=== PATIENT | female | born 1965 | race Caucasian/White ===

== ENCOUNTER → 2016-09-07 | Outpatient (CLI) | payer OTHER | LOC: COL.RAD 07:30 | DX: N18.9 Chronic kidney disease, unspecified (principal) ==

== ENCOUNTER → 2017-01-18 | Outpatient (CLI) | payer OTHER | LOC: MC.RAD 13:20 | DX: Z12.31 Encounter for screening mammogram for malignant neoplasm of breast (principal) ==

== ENCOUNTER 2017-12-21 22:50 | Emergency (ER) | payer OTHER ==
[~2017-12-21] VITALS: Ht 160 cm; Wt 52.3 kg
[2017-12-21 22:53] VITALS: TEMP 97.9
[2017-12-21 23:16] LABS: BASO % 0.2 % (0.0-2.0); EOS # 0.1 (0.0-0.7); EOS % 0.5 % (0-4.0); GRAN # 6.1 (1.4-6.5); GRAN % 64.6 % (42.2-75.2); LYMPH # 2.6 (1.2-3.4); LYMPH % 27.8 % (20.0-51.0); MEAN CELL VOLUME 104 fl (80.0-100.0); MEAN CORPUSCULAR HEMOGLOBIN 35 pg (27.0-31.0); MEAN CORPUSCULAR HGB CONC 34 g/dl (33.0-37.0); MONO # 0.6 (0.1-0.6); MONO % 5.9 % (1.7-9.3); PLATELET COUNT 188 K/mm3 (130-400); RED BLOOD COUNT 3.67 M/mm3 (4.10-5.30); REDCELL DISTRIBUTION WIDTH-CV 12.8 % (11.5-14.5)
[2017-12-21 23:18] LABS: INR 0.9 (0.8-3.0); PROTHROMBIN TIME 10.3 SECONDS (9.7-12.8)
[2017-12-21 23:23] LABS: BILIRUBIN,TOTAL 0.5 mg/dL (0.0-1.0); CALCIUM 8.1 mg/dL (8.4-10.2); CREATININE, serum 0.82 mg/dL (0.52-1.25); POTASSIUM 3.5 mmol/L (3.4-5.0); TOTAL PROTEIN 7.1 gm/dL (6.4-8.2)
[2017-12-21] MEDS ORDERED: IMURAN 50MG TAB50 MG PO (23:57)
[2017-12-21] MEDS ORDERED: WELLBUTRIN SR150 M1 PO (23:58)
[2017-12-21] MEDS ORDERED: CELEXA10 MG PO (23:58)
[2017-12-21] MEDS ORDERED: FOLIC ACID 11 MG/TA1 PO (23:58)
[2017-12-21] MEDS ORDERED: CALCIUM 600MG+D1 TAB PO (23:59)
[2017-12-21] MEDS ORDERED: MULTIPLE VITAMI1 CAP PO (23:59)
[2017-12-21] MEDS ORDERED: OMEGA-3 1000 MG1 CAP PO (23:59)
[2017-12-22 01:15] VITALS: BP 106/72; PULSE 86
== END 2017-12-22 01:25 | disposition short-term general hospital (02) ==
LOC: COL.ER 22:50
PROVIDERS: Emergency Medicine
DX: S32.010A Wedge compression fracture of first lumbar vertebra, initial encounter for closed fracture (principal); S01.01XA Laceration without foreign body of scalp, initial encounter; Z23 Encounter for immunization; V93.83XA Other injury due to other accident on board other powered watercraft, initial encounter; Y92.828 Other wilderness area as the place of occurrence of the external cause
CPT/HCPCS: J2270; J2405; J7030; Q9967

== ENCOUNTER 2017-12-31 13:07 | Emergency (ER) | payer OTHER ==
[~2017-12-31 13:07] MED LIST: CALCIUM 600MG+D1 TAB PO; CELEXA10 MG PO; FOLIC ACID 11 MG/TA1 PO; IMURAN 50MG TAB50 MG PO; MULTIPLE VITAMI1 CAP PO; OMEGA-3 1000 MG1 CAP PO; WELLBUTRIN SR150 M1 PO
[2017-12-31 13:14] VITALS: BP 119/78; PULSE 104; TEMP 98.3
== END 2017-12-31 13:17 | disposition home or self-care (01) ==
LOC: COL.ER 13:07
DX: S01.01XD Laceration without foreign body of scalp, subsequent encounter (principal)

== ENCOUNTER → 2018-02-12 | Outpatient (CLI) | payer OTHER | LOC: COL.RAD 13:49 | DX: S32.018D Other fracture of first lumbar vertebra, subsequent encounter for fracture with routine healing (principal) ==

== ENCOUNTER 2018-03-20 08:00 | Outpatient (RCR) | payer OTHER | END 2018-04-17 15:42 | disposition home or self-care (01) | LOC: WSC 08:00 | DX: S32.011D Stable burst fracture of first lumbar vertebra, subsequent encounter for fracture with routine healing (principal); S22.081D Stable burst fracture of T11-T12 vertebra, subsequent encounter for fracture with routine healing; V94.9XXD Unspecified water transport accident, subsequent encounter; F17.210 Nicotine dependence, cigarettes, uncomplicated; Z79.891 Long term (current) use of opiate analgesic; Z79.899 Other long term (current) drug therapy ==

== ENCOUNTER → 2018-03-21 | Outpatient (CLI) | payer OTHER | LOC: COL.RAD 12:18 | DX: S32.011D Stable burst fracture of first lumbar vertebra, subsequent encounter for fracture with routine healing (principal); S32.018D Other fracture of first lumbar vertebra, subsequent encounter for fracture with routine healing; M43.9 Deforming dorsopathy, unspecified; M41.86 Other forms of scoliosis, lumbar region; M51.35 Other intervertebral disc degeneration, thoracolumbar region ==

== ENCOUNTER → 2018-04-25 | Outpatient (CLI) | payer OTHER | LOC: COL.RAD 09:45 | DX: S46.812A Strain of other muscles, fascia and tendons at shoulder and upper arm level, left arm, initial encounter (principal); R29.898 Other symptoms and signs involving the musculoskeletal system ==

== ENCOUNTER 2018-06-27 05:56 | Day surgery (SDC) | payer OTHER ==
[~2018-06-27] VITALS: Ht 161.3 cm; Wt 59.9 kg
[2018-06-27 06:23] VITALS: BP 119/88; PULSE 901; TEMP 98.1
[2018-06-27] MEDS ORDERED: K-TAB20 PO (06:29)
[2018-06-27] MEDS ORDERED: CELEXA 20MG20 MG/TAB PO (06:32)
[2018-06-27] MEDS ORDERED: CYANOCOBAL1000 MCG/M IM (06:35)
[2018-06-27 07:45] VITALS: BP 122/88; PULSE 77; TEMP 97.9
--- NOTE | 2018-06-27 07:45 | NUR ---
Pt returns from endo procedure. Pt ambulates from cart to recliner with RN assist. Monitors on and alarms set. Call light within reach. Report received from BRANDON Fish. Pt denies pain or nausea. Pt requests crackers and water. No family present at this time.
[2018-06-27 08:00] VITALS: BP 122/86; PULSE 66
--- NOTE | 2018-06-27 08:00 | NUR ---
Pt taking food and drink well. No complications stated.
--- NOTE | 2018-06-27 08:11 | NUR ---
Discharge instructions given to patient. All questions answered to her satisfaction. Handed to her are discharge instructions, a discharge med sheet, and diagnosis information.
[2018-06-27 08:15] VITALS: BP 129/86; PULSE 72
--- NOTE | 2018-06-27 08:20 | NUR ---
Dr. Diaz visiting with patient and .
--- NOTE | 2018-06-27 08:35 | NUR ---
Pt discharged out of hospital via wheelchair and Sarika assist to private vehicle driven by .
== END 2018-06-27 08:35 | disposition home or self-care (01) ==
LOC: SDCO 05:56
DX: Z12.11 Encounter for screening for malignant neoplasm of colon (principal); K63.5 Polyp of colon; E88.2 Lipomatosis, not elsewhere classified; D64.9 Anemia, unspecified; K21.9 Gastro-esophageal reflux disease without esophagitis; Z83.71 Family history of colonic polyps; Z80.0 Family history of malignant neoplasm of digestive organs
CPT/HCPCS: OP; J2250; J2405; J3010; J7030

== ENCOUNTER → 2020-03-10 | Outpatient (CLI) | payer OTHER ==
[~2020-03-10] MED LIST changes: +CELEXA 20MG20 MG/TAB PO; +CYANOCOBAL1000 MCG/M IM; +K-TAB20 PO
== END ==
LOC: MC.RAD 16:45
DX: Z12.31 Encounter for screening mammogram for malignant neoplasm of breast (principal); N64.89 Other specified disorders of breast

== ENCOUNTER → 2020-03-17 | Outpatient (CLI) | payer OTHER | LOC: MC.RAD 07:00 | DX: N63.20 Unspecified lump in the left breast, unspecified quadrant (principal) ==

== ENCOUNTER → 2020-09-23 | Outpatient (CLI) | payer OTHER | LOC: MC.RAD 10:53 | DX: N64.89 Other specified disorders of breast (principal) ==

== ENCOUNTER → 2021-04-25 | Outpatient (CLI) | payer OTHER | LOC: MC.RAD 07:00 | DX: R92.8 Other abnormal and inconclusive findings on diagnostic imaging of breast (principal) ==

== ENCOUNTER → 2023-09-10 | Outpatient (CLI) | payer OTHER | LOC: MC.RAD 07:28 | DX: Z12.31 Encounter for screening mammogram for malignant neoplasm of breast (principal) ==